=== PATIENT | male | born 1955 | race Caucasian/White ===

== ENCOUNTER 2018-02-11 13:14 | Outpatient (CLI) | payer MEDICAID, SELFPAY ==
[2018-02-11 13:39] LABS: Abs Immature Grans 0.03 k/cumm (0.0-0.09); Absolute Basophil Count 0.04 k/cumm (0.0-0.2); Absolute Eosinophil Count 0.15 k/cumm (0.0-0.7); Absolute Lymphocyte Count 2.89 k/cumm (1.2-3.4); Absolute Monocyte Count 0.66 k/cumm (0.11-0.7); Absolute Neutrophil Count 4.47 k/cumm (1.2-6.7); Basophils % 0.5; Eosinophils % 1.8; HCT 43.8 % (40.0-50.0); HGB 14.8 g/dL (13.5-17.5); Immature Grans % 0.4; Lymphocytes % 35.1; Mean Corp. HGB Concentration 33.8 g/dL (32.0-36.0); Mean Corpuscular Hemoglobin 29.5 pg (27.0-33.0); Mean Corpuscular Volume 87.3 fL (80-95); Mean Platelet Volume 10.4 fL (8.0-11.0); Neutrophils % 54.2; Platelet Count 259 x1000/uL (130-400); RBC 5.02 m/cumm (4.50-6.00); RBC Distribution Width 14.7 % (11.8-14.1); White Blood Cell Count 8.24 k/cumm (4.4-10.8)
[2018-02-11 15:20] LABS: ALT 60 U/L (12-78); AST 28 U/L (15-37); Albumin 3.9 g/dL (3.4-5.0); Alkaline Phosphatase 68 U/L (46-116); Anion Gap 10.6 mmol/L (3-11); BUN 20 mg/dL (7-18); Bilirubin, Total 0.6 mg/dL (0.2-1.0); CO2 25.4 mmol/L (21.0-32.0); CREATININE 1.02 mg/dL (0.70-1.30); Calcium 9.2 mg/dL (8.5-10.1); Chloride 105 mmol/L (98-107); Glucose 93 mg/dL (70-100); Potassium 4.3 mmol/L (3.5-5.1); Sodium 141 mmol/L (136-145); Total Protein 6.8 g/dL (6.4-8.2); Uric Acid 4.5 mg/dL (3.5-7.2)
== END 2018-02-11 13:34 ==
PROVIDERS: PCP General Practice; Visit Provider Internal Medicine Rheumatology
DX: L40.50 Arthropathic psoriasis, unspecified (principal); Z79.899 Other long term (current) drug therapy; M10.9 Gout, unspecified; L40.9 Psoriasis, unspecified; M15.9 Polyosteoarthritis, unspecified; M25.552 Pain in left hip; R05 Cough
CPT/HCPCS: 36415; 80053; 84550; 85025

== ENCOUNTER 2018-04-29 10:31 | Outpatient (CLI) | payer MEDICAID, SELFPAY ==
[2018-04-29 11:16] LABS: Abs Immature Grans 0.05 k/cumm (0.0-0.09); Absolute Basophil Count 0.04 k/cumm (0.0-0.2); Absolute Lymphocyte Count 2.16 k/cumm (1.2-3.4); Absolute Monocyte Count 0.54 k/cumm (0.11-0.7); Absolute Neutrophil Count 4.65 k/cumm (1.2-6.7); Basophils % 0.5; Eosinophils % 1.3; HCT 45.2 % (40.0-50.0); HGB 14.9 g/dL (13.5-17.5); Immature Grans % 0.7; Lymphocytes % 28.6; Mean Corpuscular Hemoglobin 28.6 pg (27.0-33.0); Mean Corpuscular Volume 86.8 fL (80-95); Mean Platelet Volume 10.9 fL (8.0-11.0); Monocytes % 7.2; Neutrophils % 61.7; Platelet Count 271 x1000/uL (130-400); RBC 5.21 m/cumm (4.50-6.00); RBC Distribution Width 14.4 % (11.8-14.1); White Blood Cell Count 7.54 k/cumm (4.4-10.8)
[2018-04-29 12:16] LABS: ALT 52 U/L (12-78); AST 20 U/L (15-37); Albumin 3.7 g/dL (3.4-5.0); Alkaline Phosphatase 68 U/L (46-116); Anion Gap 9.9 mmol/L (3-11); BUN 22 mg/dL (7-18); Bilirubin, Total 0.5 mg/dL (0.2-1.0); CO2 25.1 mmol/L (21.0-32.0); CREATININE 1.12 mg/dL (0.70-1.30); Calcium 9.5 mg/dL (8.5-10.1); Chloride 103 mmol/L (98-107); Glucose 102 mg/dL (70-100); Potassium 4.4 mmol/L (3.5-5.1); Sodium 138 mmol/L (136-145); Total Protein 6.9 g/dL (6.4-8.2)
== END 2018-04-29 10:51 ==
PROVIDERS: Nurse Practitioner Family; PCP General Practice; Visit Provider Internal Medicine Rheumatology
DX: L40.50 Arthropathic psoriasis, unspecified (principal); L40.9 Psoriasis, unspecified; Z79.899 Other long term (current) drug therapy
CPT/HCPCS: 36415; 80053; 84550; 85025